=== PATIENT | male | born 1950 | race Caucasian/White ===

== ENCOUNTER → 2018-02-24 | Outpatient (CLI) | payer MEDICARE, OTHER | END | disposition home or self-care (01) | LOC: PCVCIMAG 11:58 | DX: I25.10 Atherosclerotic heart disease of native coronary artery without angina pectoris (principal); I10 Essential (primary) hypertension; E11.9 Type 2 diabetes mellitus without complications | CPT/HCPCS: 93325; 93351 ==

== ENCOUNTER → 2019-07-15 | Outpatient (CLI) | payer MEDICARE, OTHER ==
--- NOTE | 2019-07-15 17:31 | PCVCIMAG ---
APPROVED REPORT Study performed: 07/15/2019 15:25:27 Exam: Stress Echocardiogram Indication: CAD s/p PCI, Hyperlipidemia Patient Location: Echo lab Stress Nurse: Yaima Lundy RN Room #: 2 Status: routine Ht: 5 ft 9 in HR: 68 bpm BP: 142/86 mmHg Rhythm: NSR Medical History Medical History: CAD s/p stent Cardiac Risk Factors: Hyperlipidemia, FHX of CAD Previous Cardiac Procedures: PCI Pretest Chest Pain Characteristics: No chest pain Exercise History: Physically active Physical Disabilities: Knees Procedure The patient underwent an Exercise Stress Test using the Neri Protocol. Blood pressure, heart rate, and EKG were monitored. An Echocardiogram was performed by loader technician in four stages in quad fashion. At peak stress, four selected images were obtained and placed side by side with resting images for comparison. Stress Test Details Stress Test: Exercise stress testing was performed using a Neri protocol. HR Resting HR: 68 bpmMax Heart Rate (APMHR): 154 bpm Max HR Achieved: 136 bpmTarget HR (85% APMHR): 130 bpm % of APMHR: 88 Recovery HR: 76 bpm HR response to stress: Normal HR response to stress BP Resting BP: 142/86 mmHg Max BP: 170/66 mmHg Recovery BP: 142/66 mmHg BP response to stress: Normal blood pressure response to stress. ECG Resting ECG: Sinus Rhythm, NSSTT changes Stress ECG: Sinus Rhythm, nonspecific ST-T abnormalities ST Change: Upsloping ST depression,, Eqivocally ischemic Maximum ST Deviation: -2.65 mm Arrhythmia: rare PAC,PVC Recovery ECG: Sinus Rhythm, nonspecific ST-T abnormalities Recovery ST Change: Eqivocally ischemic-unchanged from prior study Recovery ST Deviation: -1.45 mm Recovery Arrhythmia: None Clinical Reason for Termination: Maximal effort Stress Symptoms: Leg Fatigue, Dyspnea Exercise duration: 8 min 55 sec Highest Stage Achieved: Stage 3: 3.4 mph at 14% grade. Exercise capacity: 10.4 METs Overall Exercise Capacity for Age: Average Scale: Active Angina Score: None No complications. Stress ECG Conclusion Chaudhry Treadmill Score is 21.3 which is Low risk. Pre-Stress Echo The resting Echocardiogram showed normal left ventricular contractility with an estimated Ejection Fraction of about 55-60%. Normal wall motion in all segments on baseline images. Post-Stress Echo The stress Echocardiogram showed normal left ventricular contractility with an estimated Ejection Fraction of about 65-70%. Normal augmentation of wall motion in all segments on post stress images. Clinical No clinical or ECG evidence for ischemia. Conclusion Clinical Response: Non-ischemic Exercise Capacity: Average Stress ECG Response: Equivocal Stress Echo Images: Non-ischemic No echocardiographic evidence for exercise induced ischemia. No clinical or echocardiographic evidence for ischemia. EKG changes are consistent with those seen on prior studies. Normal stress echocardiogram with maximal exercise stress. Mitral annular calcification without stenosis. Normal color doppler. No stenosis or regurgitation seen in the mitral,aortic,tricuspid or pulmonic valves. <Conclusion> No echocardiographic evidence for exercise induced ischemia. No clinical or echocardiographic evidence for ischemia. EKG changes are consistent with those seen on prior studies. Normal stress echocardiogram with maximal exercise stress. Mitral annular calcification without stenosis. Normal color doppler. No stenosis or regurgitation seen in the mitral,aortic,tricuspid or pulmonic valves.
== END | disposition home or self-care (01) ==
LOC: PCVCIMAG 14:51
PROVIDERS: ATTEND Internal Medicine Cardiovascular Disease
DX: I25.10 Atherosclerotic heart disease of native coronary artery without angina pectoris (principal); I10 Essential (primary) hypertension; E78.5 Hyperlipidemia, unspecified; E11.9 Type 2 diabetes mellitus without complications; Z87.891 Personal history of nicotine dependence; Z88.0 Allergy status to penicillin
CPT/HCPCS: 36415; 80061; 93325; 93351